=== PATIENT | male | born 1965 | race Caucasian/White ===

== ENCOUNTER 2024-07-01 20:46 | Inpatient (IN) | payer MEDICARE ==
[~2024-07-01] VITALS: Ht 172.7 cm; Wt 78.7 kg
[2024-07-02] VITALS (9 sets, daily range): BP systolic 122–161; BP diastolic 68–85
[2024-07-02] MEDS ORDERED: HYDROmorphone HCl/Pf 1MG SYR IV ONE ×3 (01:05→12:35)
[2024-07-02 03:20] LABS: BASOPHILS ABSOLUTE AUTO 0.06 K/mm3 (0.00-0.23); BASOPHILS PERCENT AUTO 1 % (0-2); EOSINOPHILS ABSOLUTE AUTO 0.36 K/mm3 (0.00-0.68); EOSINOPHILS PERCENT AUTO 6 % (0-6); Hematocrit 34.4 % (37.0-53.0); Hemoglobin 10.9 g/dL (13.5-17.5); IMMATURE GRAN ABSOLUTE AUTO 0.01 K/mm3 (0.00-0.10); IMMATURE GRAN PERCENT AUTO 0 % (0-1); LYMPHOCYTES ABSOLUTE AUTO 1.39 K/mm3 (0.84-5.20); LYMPHOCYTES PERCENT AUTO 25 % (21-46); MONOCYTES ABSOLUTE AUTO 0.77 K/mm3 (0.16-1.47); MONOCYTES PERCENT AUTO 14 % (4-13); Mean Corpuscular HGB 29.7 pg (26.0-34.0); Mean Corpuscular HGB Conc 31.7 g/dL (31.5-36.5); Mean Corpuscular Volume 94 fL (80-100); NEUTROPHILS PERCENT AUTO 54 % (41-73); Platelet Count 193 K/mm3 (150-400); Red Blood Cell Count 3.67 M/mm3 (4.30-5.90); White Blood Cell Count 5.59 K/mm3 (4.00-11.30)
[2024-07-02 03:41] LABS: Bun/Creatinine Ratio 11.2 (12.0-20.0); Calcium, Blood 8.6 mg/dL (8.5-10.1); Creatinine, Blood 1.16 mg/dL (0.60-1.20); Potassium, Blood 3.9 mmol/L (3.5-5.5)
[2024-07-02] MEDS ORDERED: FLU VACC TS2024-25(6MOS UP)/PF 45 MCG/0.5 ML SYRINGE IM ONE (04:45)
[2024-07-02] MEDS ORDERED: Nitroglycerin 0.4 MG SUBL SL PRN (04:45)
[2024-07-02] MEDS ORDERED: Ondansetron HCl 2 MG / ML 2ML Vial IV PRN (04:50)
[2024-07-02] MEDS ORDERED: HYDROmorphone HCl/Pf 1MG SYR IV PRN ×3 (05:20→23:30)
[2024-07-02] MEDS ORDERED: Apixaban 5 MG Tab PO SCH (09:00)
[2024-07-02] MEDS ORDERED: Atorvastatin 40 MG Tab PO SCH (09:00)
[2024-07-02] MEDS ORDERED: Aspirin 81 MG Chew PO SCH (09:00)
--- NOTE | 2024-07-02 10:40 | NUR ---
ADMISSION NOTE: PATIENT ARRIVED FROM ED AT 1006 VIA GURNEY. HE WAS ABLE TO SELF TRANSFER TO THE BED. VITALS OBTAINED SETTLED IN BED, CALL LIGHT PROVIDED, PATIENT IMMEDIATELY WANTING TO KNOW WHERE THE "PICC" NURSE WAS TO START HIS LINE. PATIENT STARTED COUGHING AND GRABBED LEFT CHEST AND STATED HE NEEDED PAIN MEDICATION. HE STATES " BETTER NOT GIVE ME ANYTHING BY MOUTH." MAP CLERK CONTACTED FOR LINE PLACEMENT. SHE ARRIVED AND PLACED POWERGLIDE. NO SIGNS OR SYMPTOMS OF DISTRESS WITH PATIENT. PLAN OF CARE ONGOING.
[2024-07-02 11:12] LABS: BASOPHILS ABSOLUTE AUTO 0.06 K/mm3 (0.00-0.23); BASOPHILS PERCENT AUTO 1 % (0-2); EOSINOPHILS ABSOLUTE AUTO 0.33 K/mm3 (0.00-0.68); EOSINOPHILS PERCENT AUTO 6 % (0-6); Hematocrit 33.4 % (37.0-53.0); Hemoglobin 10.5 g/dL (13.5-17.5); IMMATURE GRAN ABSOLUTE AUTO 0.02 K/mm3 (0.00-0.10); IMMATURE GRAN PERCENT AUTO 0 % (0-1); LYMPHOCYTES PERCENT AUTO 29 % (21-46); MONOCYTES PERCENT AUTO 14 % (4-13); Mean Corpuscular HGB 29.3 pg (26.0-34.0); Mean Corpuscular HGB Conc 31.4 g/dL (31.5-36.5); Mean Corpuscular Volume 93 fL (80-100); Mean Platelet Volume 9.9 fL (9.1-12.4); NEUTROPHILS ABSOLUTE AUTO 2.55 K/mm3 (1.96-9.15); NEUTROPHILS PERCENT AUTO 49 % (41-73); Platelet Count 187 K/mm3 (150-400); RDW Coefficient Variation 13.9 % (11.7-14.2); RDW Standard Deviation 47.5 fL (35.1-46.3); Red Blood Cell Count 3.58 M/mm3 (4.30-5.90); White Blood Cell Count 5.16 K/mm3 (4.00-11.30)
[2024-07-02 11:37] LABS: Albumin, Blood 3.4 g/dL (3.4-5.0); Albumin/Globulin Ratio 0.9 (0.8-1.8); Bilirubin, Total 0.4 mg/dL (0.1-1.0); Bun/Creatinine Ratio 11.1 (12.0-20.0); Calcium, Blood 8.6 mg/dL (8.5-10.1); Creatinine, Blood 1.08 mg/dL (0.60-1.20); Globulin, Blood 3.6 g/dL (2.2-4.0); Potassium, Blood 3.6 mmol/L (3.5-5.5)
[2024-07-02] MEDS ORDERED: DRON5 PO (13:52)
[2024-07-02] MEDS ORDERED: HYDACE10B PO (13:52)
[2024-07-02] MEDS ORDERED: METF500 PO (13:53)
[2024-07-02] MEDS ORDERED: METO25 PO (13:53)
[2024-07-02] MEDS ORDERED: Isosorbide Mono30 MG PO (13:54)
[2024-07-02] MEDS ORDERED: GABA300 PO (13:54)
[2024-07-02] MEDS ORDERED: CLOP75 PO (13:55)
[2024-07-02] MEDS ORDERED: LOVA40 PO (13:55)
[2024-07-02] MEDS ORDERED: SPIR25 PO (13:55)
[2024-07-02] MEDS ORDERED: LISI5 (13:56)
[2024-07-02] MEDS ORDERED: COLCHICINE0.6 MG PO (13:56)
[2024-07-02] MEDS ORDERED: ELIQUIS5 M2 PO (13:56)
[2024-07-02] MEDS ORDERED: AMIT25 PO (13:57)
[2024-07-02] MEDS ORDERED: Aspir 8181 MG PO (13:57)
--- NOTE | 2024-07-02 17:08 | NUR ---
SHIFT SUMMARY: PT IS A&OX4/SBA. HE IS HERE C/O CHEST PAIN AND L ARM PAIN. REPORTS 9-10/10 PAIN. REQUEST AND IS GETTING IV DILAUDID FOR PAIN WITH BENEFIT; BRING PAIN TO MANAGEBALE LEVEL TO A 4/10. PATIENT UNDERGOING A STRESS TEST. DID FIRST PORTION THIS AFTERNOON; TOLERATED WELL. PATIENT CANNOT HAVE CAFFEINE AFTER 1800 AND TO BE NPO AFTER 0000 CAN HAVE WATER FOR REST OF STRESS TEST TOMORROW. NO EVENTS OR TELE, OR SIGNS OR SYMPTOMS OF DISTRESS. PATIENT OVERALL HAS BEEN PLEASANT AND COOPERATIVE WITH CARE. 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 HE STATED " WHEN I AM IN HERE I CAN HEAR VOICES IN THE GARCIA SAYING WERE ARE GOING TO COME IN THERE AND KILL YOU." PATIENT STATES THAT HE KNOWS THAT WE AREN'T TRYING TO KILL HIM, BUT HE CAN'T MAKE THE VOICES STOP. HE STATES HE SMOKES MARIJUANA AT HOME AND THAT QUIETS THEM HE STATES. HE ALSO SHARED THAT IF IT GET BAD ENOUGH HE WILL BARRICADE THE DOOR. PATIENT IS CURRENTLY IN BED, AT BEDSIDE IN RECLINER, CALL LIGHT WITHIN REACH, PLAN OF CARE ONGOING.
[2024-07-02] MEDS ORDERED: Gabapentin 300 MG Cap PO SCH (21:00)
[2024-07-02] MEDS ORDERED: HYDROcodone 5-APAP 325 TAB PO SCH (21:00)
[2024-07-02] MEDS ORDERED: Lisinopril 5 MG Tab PO SCH (21:00)
[2024-07-02] MEDS ORDERED: Dronabinol 2.5 MG Cap PO SCH (21:00)
[2024-07-02] MEDS ORDERED: Docusate Sodium 100 MG Cap PO SCH (21:00)
[2024-07-02] MEDS ORDERED: Metoprolol Tartrate 25 MG Tab PO SCH (21:00)
[2024-07-02] MEDS ORDERED: Sennosides 8.6 MG Tab PO SCH (21:00)
[2024-07-02] MEDS ORDERED: Colchicine 0.6 MG TAB PO SCH (21:00)
[2024-07-02] MEDS ORDERED: Amitriptyline HCl 25 MG Tab PO SCH (21:00)
[2024-07-02] MEDS ORDERED: Morphine Sulfate 4 MG/1 ML Injection IV ONE (22:40)
[2024-07-02] MEDS ORDERED: Morphine Sulfate 4 MG/1 ML Injection ONE (22:41)
[2024-07-02] MEDS ORDERED: Nitroglycerin/D5W 250 ML IV PRN (23:15)
--- NOTE | 2024-07-02 23:36 | NUR ---
SHIFT SUMMARY. 2119 PT BEGAN VOMITTING. MEDICATED WITH IV ZOFRAN PER EMAR. PT WANTED TO WAIT FOR HIS 2100 NORCO, STATING HE "LIKE TO WAIT UNTIL BEDTIME TO TAKE THAT 'CAUSE IT MAKES ME SLEEPY." AT 2229, PT CAME OUT OF THE ROOM TO ASK FOR HELP. UPON WALKING INTO PT ROOM, THIS RN NOTED PT WAS HANGING OUT OF THE SIDE OF HIS BED. LENS MOLDER AND THIS RN PULLED THE PT UPRIGHT, AND WHILE ASSSESSING PT, HE PASSED OUT. THIS RN HAD BOILER RIVETER CALL A RAPID RESPONSE. PT WAS TRANSFERRED TO ICU AFTER TWO DOSES OF IV MORPHINE AND MORE THAN TWO NITRO SL TABS WERE GIVEN WITH NO RELIEF. THIS RN ESCORTED PT TO ICU. REPORT GIVEN TO ZURDO BROOKS.
[2024-07-02] MEDS ORDERED: NS 250 ML IV PRN (23:40)
[2024-07-03] VITALS (12 sets, daily range): BP systolic 110–151; BP diastolic 61–77
--- NOTE | 2024-07-03 02:50 | NUR ---
LATE ENTRY AT 07/02/24 @ 2626 PATIENT TRANSFERED TO ICU FROM MED FLOOR. ASSUMED CARE FROM SEEMA BROOKS FROM MED FLOOR
[2024-07-03 03:51] LABS: Hematocrit 31.1 % (37.0-53.0); Mean Corpuscular HGB 29.8 pg (26.0-34.0); Mean Corpuscular HGB Conc 32.2 g/dL (31.5-36.5); Mean Corpuscular Volume 93 fL (80-100); Mean Platelet Volume 9.9 fL (9.1-12.4); Platelet Count 161 K/mm3 (150-400); RDW Standard Deviation 46.9 fL (35.1-46.3); Red Blood Cell Count 3.36 M/mm3 (4.30-5.90); White Blood Cell Count 4.35 K/mm3 (4.00-11.30)
[2024-07-03] MEDS ORDERED: LORazepam 2 MG/ML 1ML Injection IV ONE (04:15)
[2024-07-03 04:29] LABS: Anion Gap 8 mmol/L (3-11); Blood Urea Nitrogen 12 mg/dL (8-24); Bun/Creatinine Ratio 12.4 (12.0-20.0); CHOL/HDL RATIO 2.8; CO2, Blood 24 mmol/L (21-32); Calcium, Blood 8.5 mg/dL (8.5-10.1); Chloride, Blood 110 mmol/L (98-108); Cholesterol 106 mg/dL (50-200); Creatinine, Blood 0.97 mg/dL (0.60-1.20); Glomerular Filtration Rate 90 (60-); Glucose, Blood 262 mg/dL (70-99); HDL Cholesterol 38 mg/dL (>39); Low Density Lipoprotein Chol 39 mg/dL (0-110); Sodium, Blood 138 mmol/L (136-145); Triglycerides 144 mg/dL (30-160); Very Low Density Lipoprot Chol 28 mg/dL (6-32)
--- NOTE | 2024-07-03 05:56 | NUR ---
SHIFT SUMMARY PATIENT CAME FROM [facility] AT 2308 ON 07/02/24. PATIENT WAS YELLING, " THE PAIN IS SO BAD AND I AM A SCHIZO AND HAVE BIPOLAR AND YOU MIGHT WANT TO HAVE MY IN HERE WITH ME". NURSE EXPLAINED THAT SHE WOULD GET SOON UDAY GOT HIM SETTLED IN ROOM. CARLO THEN STATED, "I WANT DILUADID ITS THE ONLY THING THAT HELPS". NURSE TOLD PATIENT IT WAS NOT TIME FOR THE PAIN MED AND THAT SHE WOULD CALL THE DOCTOR. PATIENT WAS SITTING ON BED WITH BY HIS SIDE IN CHAIR TELLING JOKES AND TALKING TO NURSE. PATIENT CALLED NURSE AND STATED " I HAVE SO MUCH ANXIETY BECAUSE I NEED TO SMOKE POT AND I MIGHT NEED TO GO TO CAR AND SMOKE A JOINT". NURSE CALLED DOCTOR AND GOT AN ORDER FOR ANXIETY. PATIENT RECIEVED 0.5MG OF ATIVAN AND PATIENT WOULD FALL ASLEEP MID SENTENCE AND COULD NOT HOLD UP HEAD. NURSE PUT SIDE RAILS UP AND TRIED TO LAY HEAD OF BED BACK FOR PATIENT COMFORT. PATIENT KNOWS DILUADID IS EVERY 2 HOURS AND WILL CALL NURSE FOR MEDS. PATIENT FALLS ASLEEP AND YELLS THINGS OUT AND THEN WAKES UP. A&O X4, SBP 120-130'S, HR IN THE 60'S. PATIENT HAS RIGHT BKA WITH A PROSTHESIS THAT IS IN THE ROOM BUT NOT ON PATIENT. PATIENT IS ABLE TO STAND AT BEDSIDE WITH URINAL AND DOES NOT CALL NURSE FOR ASSISTS. PATIENT'S DOES HELP HIM. PATIENT STATES " I ALWAYS HAVE STERNUM PAIN AND NECK PAIN AT HOME BUT NOTHING LIKE THE PAIN EARLY". PATIENT IS NPO BUT CAN HAVE WATER (ICE CHIPS) DUE TO STRESS TEST TODAy. CALL LIGHT WITHIN REACH
--- NOTE | 2024-07-03 06:47 | NUR ---
UPDATE CALLED DOCTOR ERENDIRA TO INFORM HIM ABOUT THE SEDATIVE STATE PATIENT WAS IN AFTER ATIVAN. ALSO TO INFORM HIM ABOUT PATIENT @ 0640 CAME TO DESK TO TELL NURSE THAT WAS UPSET AND WE NEED TO GIVE HIM SOMETHING AND THAT HE THROW A PILLOW AT HER. NURSE WENT IN TO ROOM TO TALK TO PATIENT AND HE WAS ROCKING BACK AND FORTH ON BED WITH HEAD IN HANDS SCREAMING SHUT UP TO VOICES IN HIS HEAD. PATIENT STATED " YOU BETTER GIVE ME MORE DILUADID OR I AM GOING TO FREAK OUT". NURSE TOLD HIM IT WAS TO EARLY AND HE STATED " CALL THE DOCTOR, YOU GUYS ARE JUST TRYING TO KILL ME WHEN I GO TO SLEEP". NURSE TRIED TO REASSURE HIM AND TOLD HIM HE WAS SAFE. DOCTOR WAS CALLED.
[2024-07-03] MEDS ORDERED: Spironolactone 25 MG Tab PO SCH (09:00)
[2024-07-03] MEDS ORDERED: Clopidogrel Bisulfate 75 MG Tab PO SCH (09:00)
[2024-07-03] MEDS ORDERED: Isosorbide Mononitrate 30 MG TABCR PO SCH (09:00)
[2024-07-03] MEDS ORDERED: Aminophylline 250MG / 10ML 10 ML Vial ONE (09:13)
[2024-07-03] MEDS ORDERED: Regadenoson 0.4 MG/5 ML SYRINGE ONE (09:13)
--- NOTE | 2024-07-03 10:36 | NUR ---
UPDATED [facility] ON PATIENT STATUS.
--- NOTE | 2024-07-03 10:45 | NUR ---
Called into patients room several times an hour. Pt sitting in chair, aggitated. repeatdly asking for dilauded to "help with the voices" Dilauded being given every 2 hours per MAR. Patient states the only things that help stop the voices are dilauded and weed. Pt educated on proper call rubin use and clustering care. Medication education provided but patient not receptive. Per Nuclear Med, patient okay to eat and offered food from unit fridge, refused all food offered. Patient then called the switchboard from room phone and berated staff, stating that he hasn't eaten in two days and that we're starving him. noted to have brought in 3 bags of take-out. Dr. Landry called and okayed a regular diet for patient
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
[2024-07-03] MEDS ORDERED: Insulin Human Lispro 100 Units/ML 3ML Syringe SC SCH ×2 (11:30→21:00)
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
[2024-07-03] MEDS ORDERED: HYDROmorphone HCl/Pf 1MG SYR IV PRN ×2 (17:50→18:20)
--- NOTE | 2024-07-03 19:00 | NUR ---
SHIFT SUMMARY N AOX4, pt requiring firm boundaries with expectations from staff. Rounding done Q2 to ensure needs are met. Pt ambulating in room without notifying RN. Refusing bed alarm. Educated on fall risks and expressed understanding. C: SR on tele. Stress test completed. Cardiology consulted and medical records requested from [facility]. R: on RA, lungs clear GI/: BM today, utilizing urinal independently. Regular diet started per Dr. Landry and blood glucose/insulin as charted. Patient educated on Cardiac and Diabetic diet but not receptive to it. S: Intact LINE: LUE powerglide Medicated Q2 with PRN pain medication per NOV.
[2024-07-04 02:21] VITALS: BP 148/80
[2024-07-04 02:26] VITALS: BP 147/73
[2024-07-04 05:49] VITALS: BP 148/75
--- NOTE | 2024-07-04 05:53 | NUR ---
SHIFT SUMMARY PATIENT DID NOT SLEEP AT ALL DURING SHIFT. PATIENT THOUGHT SOMEONE WAS LOOKING IN THE WINDOW AT HIM, NURSE CAME IN AND LOOKED AND TOLD PATIENT IT WAS HIS OWN REFLECTION. PATIENT CALLED NURSE MULTIPLE TIMES THROUGH SHIFT FOR MILK. ICE CREAM, TOOTHBRUSH AND PAIN MEDS. PATIENT DID NOT USE CALL LIGHT TO GO TO BATHROOM OR TO SIT IN CHAIR. NURSE CHECKED ON PATIENT BECAUSE TELEY WAS OFF AND FOUND PATIENT ON HANDS AND KNEES LOOKING UNDER HIS BED. NURSE EDUCATED PATIENT ON THE IMPORTANTANCE OF CALLING FOR HELP AND THE FALL RISKS THAT ARE INVOLVED WITH NOT CALLING NURSE. A&OX4, SBP 130-140'S HR IN THE 60'S, LUNGS CLEAR BILATERALLY, HAS RIGHT BKA, USES WALKER IN ROOM AND PUTS PROTHESIS ON AND OFF NEEDED. CALL LIGHT WITHIN REACH.
[2024-07-04 07:31] VITALS: BP 150/68
--- NOTE | 2024-07-04 08:29 | NUR ---
CARE ASSUMPTIONDURING BEDSIDE SHIFT REPORT Ibis RENNER RN THE PT IS SITTING UPRIGHT IN A CHAIR IN HIS RM ON RM AIR. PT IS ALERT AND COMMUNICATING APPROPRIATELY W STAFF. PT REPORTING INTERMITTANT CHEST PAIN THAT SEEMS TO GET WORSE W STRESS BUT IS RELIEVED AFTER A FEW MOMENTS OF CALMING HIMSELF. VSS ON RM AIR. PT REPORTING POOR APPETTITE FOR LAST MONTH. PT ASKING ABOUT TIME FRAMES ON HIS PAIN MEDICATION. PT EDUCATED ON HOW OFTEN HE CAN HAVE HIS PAIN MEDICATION AND WHEN HIS NEXT DOSE IS AVAILABLE, PT STATING HIS UNDERSTANDING OF THIS. PT ABLE TO TAKE ALL HIS AM PO MEDS W/O DIFFICULTY. PT CURRENTLY RESTING IN BED W CALL LIGHT AT HIS SIDE.
[2024-07-04 08:39] LABS: Calcium, Blood 8.7 mg/dL (8.5-10.1); Creatinine, Blood 1.06 mg/dL (0.60-1.20); Potassium, Blood 4.2 mmol/L (3.5-5.5)
--- NOTE | 2024-07-04 09:30 | NUR ---
FOOD OFFERED PT GIVEN BREAKFAST TRAY THIS AM BUT THE PT BECAME VERY UPSET THAT HIS BREAKFAST WAS NOT EGGS W BISCUITS AND GRAVY SO HE PUSHED HIS TRAY AWAY STATING HE WAS NOT GOING TO EAT. THIS RN OFFERED TO PUT IN A FOOD REQUEST FOR SCRAMBLED EGGS AND SEE IF THE KITCHEN HAD ANY BISCUITS AND GRAVY TO WHICH HE WAS HAPPY WITH. FOOD SERVICES BRINGING SCRAMBLED EGGS FOR THE PT BUT WHEN THESE WERE OFFERED TO THE PT HE STATED THAT THEY WERE NOT WARM ENOUGH. THIS RN OFFERED TO HEAT THEM UP BUT THE PT DECLINED STATING HE DOES NOT EAT MICROWAVED FOOD AND THAT HE WILL NOT EAT ANYTHING THIS [facility] HAS. PT REQUESTING ICE CHIPS AND WAS GIVEN LARGE CUP OF ICE. PT ASKING FOR IV PAIN MEDICATION TO WHICH THIS RN RE-EDUCATED HIM ON THE Q4H TIME FRAME IN THE EMAR AND THAT HIS NEXT DOSE WAS DUE AT 1000. PT SITTING IN BED WATCHING TV APPEARING COMFORTABLE W CALL LIGHT AT HIS SIDE.
--- NOTE | 2024-07-04 11:19 | NUR ---
MEDICAL RECORDS: This RN attempted to call for medical records in [place], [place]. Office closed on Friday; no answer.
--- NOTE | 2024-07-04 12:34 | NUR ---
DISCHARGE PT W DC ORDERS PER DR. MCKEON. PT IN NO OBVIOUS DISCOMFORT AT TIME OF DISCHARGE BUT THE PT VERY UPSET THAT HE COULD NOT GET ADDITIONAL IV PAIN MEDICATION PRIOR TO LEAVING. PT EDUCATED THAT HE RECIEVED 2 MG IV DILAUDID AT 1000. THIS RN OFFERING TO CALL PROVIDER FOR ADDITIONAL PO PAIN MEDICATIONS BUT THE PT STATING, "I ALREADY HAVE NORCO AND THOSE DO NOT WORK I NEED DILAUDID IN MY IV". THIS RN AGAIN EXPLAINING TO THE PT THAT HE JUST RECIEVED LARGE DOSE IV PAIN MEDICATION 2 HOURS EARLIER. PT IN NO DISTRESS BUT DID VERBALLY EXPRESS HIS FRUSTRATIONS WITH THIS. PT ABLE TO DRESS HIMSELF. THIS RN DISCHARGING THE PT'S POWERGLIDE, SITE WNL. IV SITE WRAPPED W GAUZE AND COBAN, THIS RN GIVING VERBAL INSTRUCTIONS TO REMOVE THE COBAN IN 30 MINUTES. PT TAKEN OUT IN WHEELCHAIR TO PRIVATE VEHICLE. PT GETTING HIMSELF INTO PRIVATE VEHICLE W/O DIFFICULTY.
== END 2024-07-04 12:28 | disposition home or self-care (01) | DRG 313 ==
LOC: ER 20:46 → ERHOLD 20:47 → MEDS 07-02 10:07 → ICUE 07-02 23:06
PROVIDERS: Emergency Medicine; Internal Medicine; ADMIT Student in an Organized Health Care Education/Training Program
DX: R07.89 Other chest pain (principal); I25.10 Atherosclerotic heart disease of native coronary artery without angina pectoris; Z95.1 Presence of aortocoronary bypass graft; Z95.5 Presence of coronary angioplasty implant and graft; F31.9 Bipolar disorder, unspecified; F20.9 Schizophrenia, unspecified; Z89.511 Acquired absence of right leg below knee; G62.9 Polyneuropathy, unspecified; Z86.718 Personal history of other venous thrombosis and embolism; I25.2 Old myocardial infarction; R06.02 Shortness of breath; R11.0 Nausea; Z76.5 Malingerer [conscious simulation]; Z28.21 Immunization not carried out because of patient refusal; R94.39 Abnormal result of other cardiovascular function study; I44.0 Atrioventricular block, first degree; Z88.0 Allergy status to penicillin; Z88.1 Allergy status to other antibiotic agents; Z88.8 Allergy status to other drugs, medicaments and biological substances; Z79.01 Long term (current) use of anticoagulants; Z79.82 Long term (current) use of aspirin; Z79.02 Long term (current) use of antithrombotics/antiplatelets; Z79.84 Long term (current) use of oral hypoglycemic drugs; Z79.899 Other long term (current) drug therapy
CPT/HCPCS: 36415; 71046; 78452; 80048; 80053; 80061; 82947; 83036; 83735; 83880; 84484; 85025; 85027; 85379; 93005; 93010; 93017; 94760; 96374; 96376; 99285-25; A9270; A9500; G0378; J0280; J2060; J2270; J2405; J2785; J7050; Q0167